=== PATIENT | female | born 1945 | race African-American/Black ===

== ENCOUNTER 2020-04-23 07:50 | Observation (INO) ==
[2020-04-23] MEDS ORDERED: HYDROmorphone 2 MG/1 ML VIAL IV STA (09:30)
[2020-04-23] MEDS ORDERED: ONDANSETRON 4 MG/2 ML VIAL IV STA (09:30)
[2020-04-23] MEDS ORDERED: SODIUM CHLORIDE 0.9% 1,000 ML IV STA ×2 (09:30→11:10)
[2020-04-23 10:20] LABS: Basophils % 0.3 % (0.0-0.8); Eosinophils % 0.1 % (0.00-10.9); Hematocrit 40.3 VOL% (35.7-47.0); Hemoglobin 13.7 GM/DL (12.0-16.0); Immature Granulocytes % 0.3 %; Immature Granulocytes Absolute 0.02 #; Lymphocytes # 0.7 10*3/uL (1.4-4.0); Lymphocytes % 10.1 % (21.3-54.2); Mean Corpuscular Volume 93.3 FL (87-102); Mean Platelet Volume 9.8 FL (9.6-12.0); Monocytes % 11.7 % (1.7-12.7); Neutrophils % 77.5 % (38.7-73.9); Platelet Count 129 T/CUMM (130-400); Red Blood Count 4.32 MC/CUMM (3.8-5.5); Red Cell Distribution Width 15.2 % (9.3-17.3)
[2020-04-23 10:38] LABS: Hypochromasia 1+
[2020-04-23 10:39] LABS: Macrocytosis Slight; Platelet Estimate Adequate
[2020-04-23 10:44] LABS: Alkaline Phosphatase 304 U/L (45-117); Calcium 8.6 MG/DL (8.5-10.1)
[2020-04-23 10:45] LABS: Alanine Aminotransferase 34 U/L (13-56); Albumin 1.5 G/DL (3.4-5.0); Aspartate Amino Transferase 328 U/L (0-37); Blood Urea Nitrogen 20 MG/DL (7-18); Estimated Glom Filtration Rate 41 ML/MIN; Glucose 75 MG/DL (74-106); Osmolality,Calculated 269.2 MOS/KG (273-304); Total Protein 7.8 G/DL (6.4-8.3)
[2020-04-23] MEDS ORDERED: ZALEPLON 5 MG CAPSULE PO PRN (11:37)
[2020-04-23] MEDS ORDERED: HYDROmorphone 2 MG/1 ML VIAL IV PRN (11:37)
[2020-04-23] MEDS ORDERED: ONDANSETRON 4 MG/2 ML VIAL IV PRN (11:37)
[2020-04-23] MEDS ORDERED: DEXTROSE 50% 25 GM/50 ML VIAL IV PRN (11:37)
[2020-04-23] MEDS ORDERED: GLUCAGON 1 MG VIAL IM PRN (11:37)
[2020-04-23] MEDS ORDERED: ACETAMINOPHEN 325 MG TABLET PO PRN (11:37)
[2020-04-23 12:20] LABS: Risk Ratio 17.08; Thyroid Stimulating Hormone 2.46 uIU/ml (0.358-3.74)
[2020-04-23 13:13] LABS: Bacteria,Urine Occasional /HPF (Few); Blood, Urine Small mg/dL (Negative); Glucose,Urine (UA) Negative (Negative); Ketones,Urine Negative (Negative); Mucus,Urine Occasional /LPF (Occasional); Nitrite,Urine Negative (Negative); Protein,Urine Negative; RBC,Urine 11 /HPF (0-4); Squamous Epithelial Cell,Urine Occasional /HPF (0-10); Urine Appearance CLEAR (Clear); Urine Color Amber (Yellow); Urine Specific Gravity > 1.060 (1.001-1.035); WBC,Urine 10 /HPF (0-6)
[2020-04-23 13:20] LABS: Bilirubin,Urine Small mg/dL (Negative)
[2020-04-23] MEDS: SODIUM CHLORIDE 0.9% 1,000 ML IV SCH (13:53)
[2020-04-23 14:03] LABS: INR 1.2; PT Patient Result 12.4 SECS (9.8-11.9)
[2020-04-23 15:41] LABS: Amylase,Peritoneal Fluid 24 U/L; Glucose,Peritoneal Fluid 85 MG/DL; LDH,Peritoneal Fluid 234 U/L; Total Protein,Peritoneal Fluid 1.9 G/DL
[2020-04-23 15:50] LABS: Neutrophils,Peritoneal Fluid 13 %
[2020-04-23 15:51] LABS: RBC,Peritoneal Fluid 29 T/CUMM
[2020-04-23] MEDS: FUROSEMIDE 20 MG TABLET PO SCH (18:30)
[2020-04-24] MEDS: SODIUM CHLORIDE 0.9% 1,000 ML IV SCH ×2 (04:24→14:28)
[2020-04-24 06:52] LABS: Basophils % 0.2 % (0.0-0.8); Eosinophils % 0.5 % (0.00-10.9); Hematocrit 36.2 VOL% (35.7-47.0); Immature Granulocytes % 0.6 %; Immature Granulocytes Absolute 0.04 #; Lymphocytes % 15.8 % (21.3-54.2); Mean Corpuscular HGB Conc 33.1 GM/DL (32-36); Mean Corpuscular Volume 95.5 FL (87-102); Mean Platelet Volume 10.1 FL (9.6-12.0); Monocytes % 15.4 % (1.7-12.7); Neutrophils % 67.5 % (38.7-73.9); Platelet Count 114 T/CUMM (130-400); Red Blood Count 3.79 MC/CUMM (3.8-5.5); Red Cell Distribution Width 15.7 % (9.3-17.3); White Blood Count 6.5 T/CUMM (4-12)
[2020-04-24 07:09] LABS: Albumin 1.2 G/DL (3.4-5.0); Bilirubin,Total 5.6 MG/DL (0.2-1.0); Calcium 8.3 MG/DL (8.5-10.1); Osmolality,Calculated 269.1 MOS/KG (273-304); Total Protein 6.9 G/DL (6.4-8.3)
[2020-04-24 07:15] LABS: Hypochromasia 1+; Platelet Estimate Decreased
[2020-04-24 07:16] LABS: Macrocytosis Slight
[2020-04-24] MEDS ORDERED: TEMAZEPAM 7.5 MG CAPSULE PO PRN (08:14)
[2020-04-24] MEDS ORDERED: chlorproMAZINE INJ 25 MG in SODIUM CHLORIDE 0.9% 100 ML IV PRN (08:14)
[2020-04-24] MEDS ORDERED: ONDANSETRON 4 MG/2 ML VIAL IV PRN (08:14)
[2020-04-24] MEDS ORDERED: ACETAMINOPHEN 325 MG TABLET PO PRN (08:14)
[2020-04-24] MEDS ORDERED: LACTULOSE 20 GM/30 ML UDCUP PO PRN (08:14)
[2020-04-24] MEDS ORDERED: traMADol 50 MG TABLET PO PRN (08:14)
[2020-04-24] MEDS ORDERED: PROMETHAZINE INJ 25 MG in SODIUM CHLORIDE 0.9% 50 ML IV PRN (08:14)
[2020-04-24] MEDS ORDERED: MYLANTA/LIDO VISC 2:1 300 ML BOTTLE SWISH/SPIT PRN (08:14)
[2020-04-24] MEDS ORDERED: LOPERAMIDE 2 MG CAPSULE PO PRN ×2 (08:14)
[2020-04-24] MEDS ORDERED: MAGNESIUM HYDROXIDE SUSP 30 ML UDCUP PO PRN (08:14)
[2020-04-24] MEDS ORDERED: chlorproMAZINE INJ 50 MG in SODIUM CHLORIDE 0.9% 100 ML IV PRN (08:14)
[2020-04-24] MEDS ORDERED: ALUMINUM/MAGNES/SIMETH MAX STR 30 ML UDCUP PO PRN (08:14)
[2020-04-24] MEDS ORDERED: MYLANTA/LIDO VISC 2:1 300 ML BOTTLE SWISH/SWAL PRN (08:14)
[2020-04-24] MEDS ORDERED: guaiFENesin 200 MG/10 ML UDCUP PO PRN (08:14)
[2020-04-24] MEDS: PANTOPRAZOLE 40 MG TABLET PO SCH (08:48)
[2020-04-24] MEDS: FUROSEMIDE 20 MG TABLET PO SCH ×2 (08:48→16:39)
[2020-04-24] MEDS ORDERED: RIVAROXABAN 10 MG TABLET PO SCH (09:00)
[2020-04-24] MEDS ORDERED: ALBUMIN 25% 25 GM in PREMIX 1 EACH IV ONE (10:01)
[2020-04-24] MEDS: RIVAROXABAN 10 MG TABLET PO SCH (17:07)
[2020-04-25 07:28] LABS: Basophils % 0.2 % (0.0-0.8); Eosinophils % 0.7 % (0.00-10.9); Hematocrit 35.9 VOL% (35.7-47.0); Hemoglobin 11.8 GM/DL (12.0-16.0); Immature Granulocytes % 0.4 %; Immature Granulocytes Absolute 0.02 #; Lymphocytes # 0.8 10*3/uL (1.4-4.0); Lymphocytes % 15.2 % (21.3-54.2); Mean Corpuscular HGB Conc 32.9 GM/DL (32-36); Mean Corpuscular Volume 96.5 FL (87-102); Mean Platelet Volume 9.9 FL (9.6-12.0); Monocytes % 13.9 % (1.7-12.7); Neutrophils % 69.6 % (38.7-73.9); Platelet Count 111 T/CUMM (130-400); Red Blood Count 3.72 MC/CUMM (3.8-5.5); Red Cell Distribution Width 15.5 % (9.3-17.3); White Blood Count 5.5 T/CUMM (4-12)
[2020-04-25 07:50] LABS: Albumin 1.6 G/DL (3.4-5.0); Bilirubin,Total 6.1 MG/DL (0.2-1.0); Calcium 8.2 MG/DL (8.5-10.1); Total Protein 6.8 G/DL (6.4-8.3)
[2020-04-25] MEDS ORDERED: SODIUM PHOSPHATE ENEMA 133 ML BOTTLE RECTAL ONE (08:07)
[2020-04-25] MEDS: PANTOPRAZOLE 40 MG TABLET PO SCH (08:25)
[2020-04-25] MEDS: FUROSEMIDE 20 MG TABLET PO SCH ×3 (08:25→16:03)
[2020-04-25] MEDS: SODIUM CHLORIDE 0.9% 1,000 ML IV SCH ×2 (08:26→14:21)
[2020-04-25] MEDS: fentaNYL 12 MCG/HR PATCH TRANSDERM SCH (09:26)
[2020-04-25] MEDS: SPIRONOLACTONE 25 MG TABLET PO SCH (13:36)
[2020-04-25] MEDS: ALPRAZolam 0.25 MG TABLET PO PRN (13:54)
[2020-04-25] MEDS: RIVAROXABAN 10 MG TABLET PO SCH (16:23)
[2020-04-26 05:35] LABS: Basophils % 0.2 % (0.0-0.8); Eosinophils % 0.3 % (0.00-10.9); Hematocrit 39.3 VOL% (35.7-47.0); Hemoglobin 12.9 GM/DL (12.0-16.0); Immature Granulocytes % 0.5 %; Immature Granulocytes Absolute 0.03 #; Lymphocytes # 0.9 10*3/uL (1.4-4.0); Lymphocytes % 14.1 % (21.3-54.2); Mean Corpuscular HGB Conc 32.8 GM/DL (32-36); Mean Corpuscular Volume 96.8 FL (87-102); Mean Platelet Volume 10.1 FL (9.6-12.0); Monocytes % 13.6 % (1.7-12.7); Neutrophils % 71.3 % (38.7-73.9); Platelet Count 124 T/CUMM (130-400); Red Blood Count 4.06 MC/CUMM (3.8-5.5); Red Cell Distribution Width 15.6 % (9.3-17.3)
[2020-04-26 05:56] LABS: Albumin 1.8 G/DL (3.4-5.0); Bilirubin,Total 6.1 MG/DL (0.2-1.0); Calcium 8.6 MG/DL (8.5-10.1); Total Protein 7.2 G/DL (6.4-8.3)
[2020-04-26 06:04] LABS: Hypochromasia 1+; Polychromasia Slight
[2020-04-26 06:05] LABS: Macrocytosis Slight; Platelet Estimate Adequate
[2020-04-26] MEDS: PANTOPRAZOLE 40 MG TABLET PO SCH (09:02)
[2020-04-26] MEDS: SPIRONOLACTONE 25 MG TABLET PO SCH (09:02)
[2020-04-26] MEDS: FUROSEMIDE 20 MG TABLET PO SCH ×2 (09:02→15:37)
[2020-04-26] MEDS: diphenhydrAMINE CAP 25 MG CAPSULE PO PRN (11:51)
[2020-04-26] MEDS: RIVAROXABAN 10 MG TABLET PO SCH (15:37)
[2020-04-27] MEDS: diphenhydrAMINE CAP 25 MG CAPSULE PO PRN (03:53)
[2020-04-27] MEDS: FUROSEMIDE 20 MG TABLET PO SCH ×2 (08:48→16:24)
[2020-04-27] MEDS: SPIRONOLACTONE 25 MG TABLET PO SCH (08:48)
[2020-04-27] MEDS: PANTOPRAZOLE 40 MG TABLET PO SCH (08:48)
[2020-04-27] MEDS: SULFAMETHOX/TRIMETHOPRIM 800-160 MG TABLET PO SCH ×2 (10:22→21:57)
[2020-04-27] MEDS: RIVAROXABAN 10 MG TABLET PO SCH (16:24)
[2020-04-28] MEDS: ALPRAZolam 0.25 MG TABLET PO PRN (05:59)
[2020-04-28] MEDS: fentaNYL 12 MCG/HR PATCH TRANSDERM SCH (09:06)
[2020-04-28] MEDS: PANTOPRAZOLE 40 MG TABLET PO SCH (09:07)
[2020-04-28] MEDS: FUROSEMIDE 20 MG TABLET PO SCH (09:07)
[2020-04-28] MEDS: SPIRONOLACTONE 25 MG TABLET PO SCH (09:07)
[2020-04-28] MEDS: SULFAMETHOX/TRIMETHOPRIM 800-160 MG TABLET PO SCH (09:07)
[2020-04-28 11:58] VITALS: BP 97/51
[2020-04-28] MEDS ORDERED: HEPARIN LOCK FLUSH 500 UNIT/5 ML SYRINGE IV PRN (12:43)
== END 2020-04-28 14:33 | disposition hospice, inpatient (51) ==
LOC: N.ED 07:50 → INTOOBSV 11:36 → N.EDINP 11:36 → SUATTDRO 11:36 → N.4E 15:44
PROVIDERS: ADMIT Internal Medicine; ATTEND Emergency Medicine